=== PATIENT | female | born 1950 | race Caucasian/White ===

== ENCOUNTER → 2024-02-02 12:18 | Outpatient (REF) | payer MEDICARE, OTHER, SELFPAY | LOC: WDC 12:18 | PROVIDERS: ATTENDING PHYSICIAN Obstetrics & Gynecology; FAMILY PHYSICIAN Family Medicine | DX: Z12.31 Encounter for screening mammogram for malignant neoplasm of breast (principal) | CPT/HCPCS: 77063; 77067 ==

== ENCOUNTER → 2024-03-17 12:50 | Outpatient (REF) | payer MEDICARE, OTHER, SELFPAY | LOC: RAD 12:50 | PROVIDERS: ATTENDING PHYSICIAN Obstetrics & Gynecology; FAMILY PHYSICIAN Family Medicine | DX: Z78.0 Asymptomatic menopausal state (principal) | CPT/HCPCS: 77080 ==

== ENCOUNTER 2024-08-05 06:24 | Day surgery (SDC) | payer MEDICARE, OTHER, SELFPAY ==
[2024-08-05 07:30] LABS: Glucose - Point of Care 135 mg/dl (70-99)
== END 2024-08-05 09:14 | disposition home or self-care (01) ==
LOC: GI 06:24
PROVIDERS: ATTENDING PHYSICIAN Specialist; FAMILY PHYSICIAN Family Medicine
DX: Z12.11 Encounter for screening for malignant neoplasm of colon (principal); K55.20 Angiodysplasia of colon without hemorrhage; K63.89 Other specified diseases of intestine; K63.5 Polyp of colon; Z86.0101 Personal history of adenomatous and serrated colon polyps
CPT/HCPCS: 45385; 45380; 88305; 82962

== ENCOUNTER → 2024-12-13 09:50 | Outpatient (REF) | payer MEDICARE, OTHER, SELFPAY ==
[2024-12-13 11:26] LABS: Hematocrit 39.8 % (37.0-47.0); Hemoglobin 13.3 g/dL (12.0-16.0); Mean Corp Hgb Conc. 33.4 g/dL (33.0-37.0); Mean Corpuscular Volume 90.2 fL (81.0-99.0); Nucleated Red Blood Cells % 0 %; Platelet Count 181 10^3/uL (130-400); Red Cell Dist. Width 12.3 % (11.5-14.5)
[2024-12-13 12:08] LABS: ALT (SGPT) 20 U/L (0-35); AST (SGOT) 23 U/L (14-36); Albumin 4.3 g/dl (3.5-5.0); Alkaline Phosphatase 63 U/L (38-126); Blood Urea Nitrogen 14 mg/dl (7-17); Calcium 9.5 mg/dl (8.4-10.2); Carbon Dioxide 33 mmol/L (22-30); Chloride 100 mmol/L (98-107); Glucose 113 mg/dl (70-99); Magnesium 1.9 mg/dl (1.6-2.3); Potassium 3.5 mmol/L (3.5-5.1); Sodium 139 mmol/L (135-145); Total Protein 6.7 g/dl (6.3-8.2); eGFR > 60.00
== END ==
LOC: SDSPAT 09:50
PROVIDERS: ATTENDING PHYSICIAN Internal Medicine Cardiovascular Disease; FAMILY PHYSICIAN Family Medicine; OTHER PHYSICIAN Internal Medicine Cardiovascular Disease
DX: I44.2 Atrioventricular block, complete (principal)
CPT/HCPCS: 36415; 80053; 83735; 85025; 93005

== ENCOUNTER 2024-12-23 10:21 | Day surgery (SDC) | payer MEDICARE, OTHER, SELFPAY ==
[2024-12-13 11:00] VITALS: BMI 26.3
[2024-12-23] VITALS (7 sets, daily range): BP systolic 106–163; BP diastolic 52–97; BMI 26.3
[2024-12-23 11:10] LABS: Glucose - Point of Care 120 mg/dl (70-99)
[2024-12-23] MEDS: VANCOCIN 200 IV (12:00)
--- NOTE | 2024-12-23 13:16 | ITS.CL.PACE ---
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
Pacemaker Implant
Procedure Report:
Date of Procedure: December 23, 2024
Patient : 1950
Procedure: Pacemaker generator change dual-chamber
Indication: Generator at FERN
Implants:
Pulse Generator: Medtronic; Model# W1 DR ; SN: [id number] implanted today
RA Lead: Medtronic; Model# 5076; SN: [id number] implanted 2014
RV Lead: Medtronic; Model# 5076; SN: [id number] implanted 2014
Explants:
Medtronic product number A2 DR serial number [id number] implanted 2014
Technique: A time out was performed. The procedure site was identified. The patient was anesthetized by the anesthesia service. Preoperative conscious sedation was administered. The patient was prepped and draped in the usual fashion. Local
anesthetic was applied to the left prepectoral subcutaneous tissue. The 3 inch chronic incision was made 2.5 inches below the left clavicle. A subcutaneous pocket was created with blunt and sharp dissection and hemostasis controlled with Bovie
cautery. The chronic device was identified and removed from the leads and the field. The patient has no underlying ventricular rhythm. The chronic leads were transferred over to the new device and the leads were appropriately attached to the
device. The pocket was irrigated with antibiotic solution. The device and leads were placed in the pocket. The incision was closed in three layers with absorbable suture. The estimated blood loss was minimal. There were no complications.��
Lead Analysis:
RA lead: P: 4 mV; Threshold: 0.75 V @ 0.5��ms; Impedance: 570 ohms.
RV lead: R: 0 mV; Threshold: 0.75 V @ 0.5��ms; Impedance: 400 ohms.
Final Programming: DDD 50 to 145 bpm
�
Conclusion: Uncomplicated Medtronic pacemaker generator change
Recommendation: Routine post pacemaker care.
== END 2024-12-23 15:00 | disposition home or self-care (01) ==
LOC: CATH 10:21
PROVIDERS: ATTENDING PHYSICIAN Internal Medicine Cardiovascular Disease; FAMILY PHYSICIAN Family Medicine; OTHER PHYSICIAN Internal Medicine Cardiovascular Disease
DX: Z45.010 Encounter for checking and testing of cardiac pacemaker pulse generator [battery] (principal); I44.2 Atrioventricular block, complete; E78.5 Hyperlipidemia, unspecified; I10 Essential (primary) hypertension; Z79.84 Long term (current) use of oral hypoglycemic drugs; E11.9 Type 2 diabetes mellitus without complications; K57.90 Diverticulosis of intestine, part unspecified, without perforation or abscess without bleeding; K58.9 Irritable bowel syndrome, unspecified; I87.2 Venous insufficiency (chronic) (peripheral); Z79.899 Other long term (current) drug therapy; Z88.0 Allergy status to penicillin
CPT/HCPCS: 33228; 82962; C1785

== ENCOUNTER → 2025-05-09 08:10 | Outpatient (REF) | payer MEDICARE, OTHER, SELFPAY | LOC: RCS 08:10 | PROVIDERS: ATTENDING PHYSICIAN Internal Medicine Cardiovascular Disease; FAMILY PHYSICIAN Family Medicine | DX: I34.0 Nonrheumatic mitral (valve) insufficiency (principal) | CPT/HCPCS: 93306 ==